=== PATIENT | female | born 1995 ===

== ENCOUNTER 2017-08-11 21:22 | Emergency (ER) | payer SELFPAY ==
[2017-08-11 23:37] LABS: HCG,QUALITATIVE URINE NEGATIVE (NEGATIVE)
[2017-08-11 23:38] LABS: SQUAMOUS EPITHIAL 6 /hpf (0-5); URINE BACTERIA RARE (<OCC); URINE BILIRUBIN NEGATIVE (NEGATIVE); URINE BLOOD 2+ (NEGATIVE); URINE CLARITY Hazy (Clear); URINE COLOR Yellow (YELLOW); URINE GLUCOSE (UA) NORMAL (Normal); URINE LEUKOCYTE ESTERASE 3+ Leu/uL (Negative); URINE NITRATE NEGATIVE (NEGATIVE); URINE PROTEIN NEGATIVE (NEGATIVE); URINE UROBILINOGEN NORMAL mg/dL (0.2-1.0)
--- NOTE | 2017-08-12 00:53 | C.PDOC ---
History Of Present Illness Patient is a 22 y/o female who presents to the ED with complaints of rash and blisters in vaginal area x 2 days. Per control electrician, patient admits pain, urinary symptoms, and white vaginal discharge earlier in week. Notes beginning menstrual period today. Patient reports to have unprotected sex with one monogamous partner. Denies any abdominal pain. No other physical complaints at this time. 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) History/Exam Limitations: no limitations Onset/Duration Of Symptoms: Days (few days ) Current Symptoms Are (Timing): Still Present Associated Symptoms: Urinary Symptoms (vaginal rash, pain, and discharge) Recent travel outside of the [place]: No Past Medical History Reviewed: Historical Data, Nursing Documentation, Vital Signs Vital Signs: Last Vital Signs Temp 98.5 F 08/12/17 03:28 Pulse 85 08/12/17 03:28 Resp 20 08/12/17 03:28 BP 118/75 08/12/17 03:28 Pulse Ox 100 08/12/17 04:04 - Medical History Other PMH: Herpes Surgical History: No Surg Hx Family History: States: No Known Family Hx - Social History Hx Tobacco Use: No Hx Alcohol Use: No Hx Substance Use: No - Immunization History Hx Tetanus Toxoid Vaccination: No Hx Influenza Vaccination: No Hx Pneumococcal Vaccination: No Review Of Systems Genitourinary: Positive for: Vaginal Discharge, Other (vaginal rash and pain) Physical Exam - Physical Exam Appears: Non-toxic, No Acute Distress Gastrointestinal/Abdominal: Soft, No Tenderness Pelvic: Vaginal Discharge (copious discharge yellow in nature), No Cervical Motion Tenderness, Other (shaved pubis; enlarged swollen-appearing follicles on bilateral external labia; tender to touch ) Neurological/Psych: Oriented x3, Normal Speech, Normal Cognition ED Course And Treatment O2 Sat by Pulse Oximetry: 100 Progress Note: GC stat, Tylenol, zovirax, and cipro administered. Genital culture and urine C&S ordered. Medical Decision Making Medical Decision Making: vaginal pain, discharge, urinary symptoms. - not ; plan- gc, chlamydia, culture, ua uc, [id number] am; pt wiht some folliculituiis appearing areas ans some vesicles some unroofed. willl tx for herpes and uti, d/c gyun f/u Disposition Counseled Patient/Family Regarding: Diagnosis, Need For Followup, Rx Given - Disposition Referrals: [facility] [Outside] Disposition: HOME/ ROUTINE Disposition Time: 03:16 Condition: STABLE Additional Instructions: Por favor onelia un seguimiento en la clnica mdica / de mujeres, llame a Monday para programar anette abhay o vaya a [facility], tome los medicamentos seg n lo recetado. No tenga relaciones sexuales hasta que jose al mdico y obtenga resultados de cultivos para sonia si necesita ms antibiticos. Deje de afeitarse el valentine en la regin pblica, Please follow up in medical/womens clinic, call on Monday for an appointment or go to [facility], Take medications as prescribed. Do not have sexual relations until you see doctor and get results of cultures to see if you need any more antibiotics. Stop shaving hair in public region, Prescriptions: Acyclovir 400 mg PO TID #21 tablet Ciprofloxacin HCl [Cipro] 500 mg PO BID #10 tablet Instructions: Genital Herpes Simplex (ED), Urinary Tract Infection in Women (ED ) Forms: Gen Discharge Inst Singaporean, [employer] (Singaporean) Print Language: SLOVENIAN - Clinical Impression Clinical Impression: UTI (urinary tract infection), Herpes - Scribe Statement The provider has reviewed the documentation as recorded by the Scribe Yoly Carty All medical record entries made by the Scribe were at my direction and personally dictated by me. I have reviewed the chart and agree that the record accurately reflects my personal performance of the history, physical exam, medical decision making, and the department course for this patient. I have also personally directed, reviewed, and agree with the discharge instructions and disposition.
[2017-08-12 03:29] VITALS: BP 118/75; PULSE 85; RESP 20; TEMP 98.5
[2017-08-12 04:00] VITALS: O2SAT 100
== END 2017-08-12 03:29 | disposition home or self-care (01) ==
LOC: C.ER 21:22
DX: N39.0 Urinary tract infection, site not specified (principal); A60.00 Herpesviral infection of urogenital system, unspecified